=== PATIENT | female | born 1990 | race Caucasian/White ===

== ENCOUNTER 2017-06-16 12:11 | Inpatient (IN) | payer MEDICAID ==
[~2017-06-16] VITALS: Ht 160 cm; Wt 74.0 kg
[~2017-06-16 12:11] MED LIST: CALC600T24 PO; FOLI-49 PO; PREN-39 PO
[2017-06-16] MEDS ORDERED: LACTATED RINGER'S 1,000 ML IV SCH (12:36)
[2017-06-16 12:51] VITALS: BMI 28.9
[2017-06-16 12:52] VITALS: Ht 160 cm; Wt 74.0 kg
[2017-06-16 12:53] VITALS: BP 102/78; PULSE 78; RESP 18
[2017-06-16 12:57] LABS: BASOPHILS % 0.3 % (0.0-2.0); EOSINOPHILS % 0.4 % (0.0-7.0); HEMATOCRIT 38.9 % (37.0-47.0); HEMOGLOBIN 12.8 g/dl (12.0-16.0); LYMPHOCYTES # 1.8 10^3/ul (0.8-2.9); LYMPHOCYTES % 22.6 % (15.0-51.0); MEAN CORPUSCULAR HEMOGLOBIN 25.9 pg (29.0-33.0); MEAN CORPUSCULAR HGB CONC 32.9 g/dl (32.0-37.0); MEAN CORPUSCULAR VOLUME 78.6 fl (82.0-101.0); MEAN PLATELET VOLUME 11.4 fl (7.4-10.4); MONOCYTE # 0.6 10^3/ul (0.3-0.9); NEUTROPHIL # 5.5 10^3/ul (1.6-7.5); NEUTROPHILS % 68.9 % (39.0-77.0); PLATELET COUNT 263 10^3/UL (140-415); RED BLOOD COUNT 4.95 10^6/ul (4.20-5.40); RED CELL DISTRIBUTION WIDTH 15.7 % (11.5-14.5)
[2017-06-16] MEDS ORDERED: MINERAL OIL LIGHT 10 ML VIAL TOP PRN (13:00)
[2017-06-16] MEDS ORDERED: MISOPROSTOL 200 MCG TAB PR PRN ×2 (13:00→17:00)
[2017-06-16] MEDS ORDERED: OXYTOCIN 30 UNITS/LR 500 ML IV SCH ×2 (13:00)
[2017-06-16] MEDS ORDERED: AMPICILLIN 2 GM/NS (PMX) 100 ML IV ONE (13:00)
[2017-06-16] MEDS ORDERED: METHYLERGONOVINE 0.2 MG INJ IM PRN ×2 (13:00→17:00)
[2017-06-16] MEDS ORDERED: LACTATED RINGER'S 1,000 ML IV PRN (13:00)
[2017-06-16] MEDS ORDERED: CARBOPROST 250 MCG INJ IM PRN ×2 (13:00→17:00)
[2017-06-16] MEDS ORDERED: LIDOCAINE 1% (MPF) 30 ML INJ INJ PRN (13:00)
[2017-06-16] MEDS ORDERED: OXYTOCIN 30 UNITS/LR 500 ML IV PRN ×2 (13:00→17:00)
[2017-06-16 13:14] LABS: INR 0.88; PROTIME 11.9 Sec (12.2-14.2); PT RATIO 0.9
[2017-06-16 13:15] LABS: PARTIAL THROMBOPLASTIN TIME 26.3 Sec (25.0-35.0)
[2017-06-16] MEDS ORDERED: FENTAnyl 2MCG/ML-ROPIV 0.2% 100 ML ONE (13:41)
[2017-06-16] MEDS ORDERED: FENTAnyl 2MCG/ML-ROPIV 0.2% 100 ML BAG EPI SCH (15:00)
[2017-06-16] MEDS ORDERED: NALOXONE (0.4 MG/ML) INJ IV PRN (15:00)
--- NOTE | 2017-06-16 15:36 | HP ---
Date/Time of Note Date/Time of Note DATE: 06/16/17 TIME: 15:29 OB - History Hx of Present Free Text/Dictation 27-year-old female at 38+ weeks had onset of labor pains started 11:00 06/16/2017 Chief Complaint: Liver pains Estimated Due Date: Jun 24, 2017 : 2 Para: 1 Care: Good Care Ultrasounds: Normal mid trimester US Obstetrical Complications: None Medical Complications: None Past Family/Social History * Past Medical, Surgical, Family and Obstetric Histories reviewed from chart. Blood Type: O+ Rubella: immune RPR/VDRL: Negative GBS Status: Unknown HBsAG: Negative OB Admission Exam Vital Signs Vital Signs Vital Signs Date Time Temp Pulse Resp B/P Pulse Ox O2 Delivery O2 Flow Rate FiO2 06/16/17 12:53 98.2 78 18 102/78 99 Room Air Physical Exam HEENT: WNL Heart: Rhythm Normal Lungs: Clear, Equal Abdomen: WNL Extremities: Normal Reflexes: Normal Cervical Dilatation: 5cm Effacement: 100% Station: -3 Membranes: Intact Heart Rate: 140's Accelerations: Accelerations Present Decelerations: No Decelerations Varibility: Marked Date/Time Contractions Began: June 16, 2017 at 1100 a.m. Frequency of Contractions: Every 5 minutes Duration: Single over 60 seconds Intensity: Moderate Last 72 hours Lab Results CBC & BMP 06/16/17 12:28 OB Assessment/Plan Reason for admission: active labor Other Assessment: Term gestation Other plan: Proceed with labor RONNY YEPEZ MD Jun 16, 2017 15:36
--- NOTE | 2017-06-16 15:37 | LDN ---
Date/Time of Note Date/Time of Note DATE: 06/16/17 TIME: 15:36 Delivery Summary Normal spontaneous vaginal delivery of a viable over intact perineum Weeks of Gestation 38+ Placenta Delivered: Spontaneously, Intact & Complete Meconium: none Episiotomy: No Perineal laceration: 1 Laceration repair: First-degree perineal laceration was repaired in layers in normal fashion using 2-0 Vicryl and 2-0 chromic stitches Anesthesia type: Epidural Estimated blood loss: 300 Sponge & Needle done & correct: Yes All needle counts correct: Yes Any foreign bodies felt in the: No Problems: Infant Delivery Information Sex Infant Sex: female Apgars 1 Minute: 9 5 Minute: 9 Suctioning Nose & mouth suctioned at aaliyah: Yes Delee suction performed: No Umbilical Cord Umbilical cord with: 3 Vessels Cord presentations: no nuchal cord Cord Blood was obtained: Yes Mother & Baby Disposition Disposition Mom & Baby to Maternity; Good: Yes (Mother and baby were recovered in good condition) Mom transferred to: Other (Maternity) Baby to NICU: No RONNY YEPEZ MD Jun 16, 2017 15:37
[2017-06-16] MEDS: LACTATED RINGER'S 1,000 ML IV* SCH (16:51)
[2017-06-16] MEDS ORDERED: AMPICILLIN 1 GM/NS (PMX) 50 ML IV SCH (17:00)
[2017-06-16] MEDS ORDERED: DIBUCAINE 1% 30 GM OINT PR PRN (17:00)
[2017-06-16] MEDS ORDERED: LANOLIN 7 GM TUBE TOP PRN (17:00)
[2017-06-16] MEDS ORDERED: ZOLPIDEM 5 MG TAB PO PRN (17:00)
[2017-06-16] MEDS ORDERED: HYDROCODONE/APAP (5/325) TAB PO PRN (17:00)
[2017-06-16 17:30] VITALS: BP 115/71; PULSE 69; RESP 18
[2017-06-16] MEDS: CEPHALEXIN 500 MG CAP PO SCH ×2 (18:33→23:51)
[2017-06-16] MEDS: IBUPROFEN 600 MG TAB PO SCH ×2 (18:33→23:51)
[2017-06-16] MEDS: WITCH HAZEL/GLYCERIN PAD PR PRN (18:33)
[2017-06-16] MEDS: BENZOCAINE 20% 56 ML SPRAY TOP PRN (18:33)
[2017-06-16 20:00] VITALS: BP 96/51; PULSE 86; RESP 18
[2017-06-16] MEDS: HYDROCODONE/APAP (5/325) TAB PO PRN (20:03)
[2017-06-16] MEDS: MAGNESIUM HYDROXIDE 30ML CUP PO SCH (21:35)
[2017-06-16] MEDS: SENNA/DOCUSATE NA (8.6MG/50MG) TAB PO SCH (21:35)
[2017-06-17] VITALS: BP 93/49; PULSE 75; RESP 18
[2017-06-17] MEDS: LACTATED RINGER'S 1,000 ML IV* SCH ×2 (00:51→08:51)
[2017-06-17 04:00] VITALS: BP 99/54; PULSE 80; RESP 18
[2017-06-17] MEDS: HYDROCODONE/APAP (5/325) TAB PO PRN (04:48)
[2017-06-17] MEDS: IBUPROFEN 600 MG TAB PO SCH ×3 (06:12→17:44)
[2017-06-17] MEDS: CEPHALEXIN 500 MG CAP PO SCH ×3 (06:12→17:43)
[2017-06-17 08:00] VITALS: BP 98/50; PULSE 78; RESP 18
[2017-06-17] MEDS: MAGNESIUM HYDROXIDE 30ML CUP PO SCH ×2 (09:00→21:00)
[2017-06-17] MEDS: SENNA/DOCUSATE NA (8.6MG/50MG) TAB PO SCH (09:01)
[2017-06-17 09:59] LABS: BASOPHILS % 0.3 % (0.0-2.0); EOSINOPHILS # 0.1 10^3/ul (0.0-0.5); EOSINOPHILS % 0.5 % (0.0-7.0); HEMATOCRIT 33.2 % (37.0-47.0); HEMOGLOBIN 10.6 g/dl (12.0-16.0); LYMPHOCYTES # 2.5 10^3/ul (0.8-2.9); LYMPHOCYTES % 24.1 % (15.0-51.0); MEAN CORPUSCULAR HEMOGLOBIN 25.3 pg (29.0-33.0); MEAN CORPUSCULAR HGB CONC 31.9 g/dl (32.0-37.0); MEAN CORPUSCULAR VOLUME 79.2 fl (82.0-101.0); MEAN PLATELET VOLUME 11.4 fl (7.4-10.4); MONOCYTE # 0.6 10^3/ul (0.3-0.9); MONOCYTES % 5.4 % (0.0-11.0); NEUTROPHIL # 7.1 10^3/ul (1.6-7.5); NEUTROPHILS % 69.1 % (39.0-77.0); PLATELET COUNT 210 10^3/UL (140-415); RED BLOOD COUNT 4.19 10^6/ul (4.20-5.40); RED CELL DISTRIBUTION WIDTH 15.7 % (11.5-14.5); WHITE BLOOD COUNT 10.3 10^3/ul (4.8-10.8)
--- NOTE | 2017-06-17 15:59 | DS ---
Date/Time of Note Date/Time of Note Home today or next day DATE: 06/17/17 TIME: 15:58 Obstetrical Discharge Record Final Diagnosis Final Diagnosis: Term delivered Other Final Diagnosis Status post vaginal delivery Vaginal Delivery Obstetrical Delivery: Spontaneous, Laceration, Repaired Condition on Discharge Physical Assessment Last Vitals: See nurse's notes Voiding: Yes Bowel Movement: Yes Breast: Soft, non-tender, Filling Fundus: Firm Abdomen and Incision: Soft bowel sounds present Episiotomy: Not applicable Perineum is clean and healing well Calf Tenderness: No Patient Condition: Good RONNY YEPEZ MD Jun 17, 2017 15:59
[2017-06-17 16:00] VITALS: BP 92/50; PULSE 68; RESP 18
[2017-06-17] MEDS ORDERED: IBUP-1542 PO (16:01)
--- NOTE | 2017-06-17 16:01 | PD.PPDC ---
OPERATIONS SUPPORT MANAGER Discharge Instruction Provider Information Physician Information 87-year-old female had vaginal delivery Diagnosis Final Diagnosis: Status post vaginal delivery Condition Patient Condition: Good Diet Diet: Resume Regular Diet Activity/Restrictions Activity: Normal Activity May Shower Restrictions: Nothing in the Vagina Return to Work or School: Aug 05, 2017 Follow-up Follow-up with Physician: 4, Week/Weeks (In clinic) Return to clinic for OB Instructions: Breast Tenderness Depression Comment: Pelvic rest 6 weeks RONNY YEPEZ MD Jun 17, 2017 16:01
[2017-06-17 20:00] VITALS: BP 109/61; PULSE 81; RESP 18
[2017-06-18] MEDS: SENNA/DOCUSATE NA (8.6MG/50MG) TAB PO SCH ×2 (01:46→08:34)
[2017-06-18] MEDS: CEPHALEXIN 500 MG CAP PO SCH ×2 (01:46→08:34)
[2017-06-18] MEDS: IBUPROFEN 600 MG TAB PO SCH ×2 (01:46→08:34)
[2017-06-18] MEDS: WITCH HAZEL/GLYCERIN PAD PR PRN (01:47)
[2017-06-18] MEDS: BENZOCAINE 20% 56 ML SPRAY TOP PRN (01:47)
[2017-06-18 04:00] VITALS: BP 110/72; PULSE 81; RESP 18
[2017-06-18] MEDS: MAGNESIUM HYDROXIDE 30ML CUP PO SCH (08:34)
[2017-06-18 08:35] VITALS: BP 103/58; PULSE 85; RESP 18
[2017-06-18] MEDS ORDERED: MEASLES,MUMPS,RUBELLA VACCINE INJ SC* ONE (09:00)
[2017-06-18] MEDS ORDERED: DIPHTH/TET/ACEL PERTUSS (ADULT) 0.5 ML VIAL IM* ONE (09:00)
[2017-06-18] MEDS ORDERED: VARICELLA VACCINE LIVE/PF 1,350 UNIT/0.5 ML ML SC* ONE (09:00)
[2017-06-18 13:46] LABS: RUBELLA ANTIBODY - IGG 3.63 index
== END 2017-06-18 15:37 | disposition home or self-care (01) | DRG 775 ==
LOC: OBT 12:11 → L-D 12:14 → OBT 12:30 → L-D 12:30 → PP1 17:32
PROVIDERS: ADMIT Obstetrics & Gynecology; ATTEND Obstetrics & Gynecology
PROC: 10E0XZZ Delivery of Products of Conception, External Approach (ICD-10-PCS; principal; 2017-06-16)
PROC: 0HQ9XZZ Repair Perineum Skin, External Approach (ICD-10-PCS; 2017-06-16)
DX: O70.0 First degree perineal laceration during delivery (principal); Z37.0 Single live birth; Z3A.38 38 weeks gestation of pregnancy
CPT/HCPCS: 62319; 85025; 85610; 85730; 86592; 86703; 86762; 86900; 86901; 87340; 90715; 90716; G0463; J0290; J2590; J3010; J7120

== ENCOUNTER 2018-08-21 01:00 | Emergency (ER) | END 2018-08-21 04:14 | disposition home or self-care (01) ==